=== PATIENT | female | born 2000 | race African-American/Black ===

== ENCOUNTER 2022-06-09 19:58 | Outpatient (CLI) | payer OTHER, MEDICAID ==
[~2022-06-09] VITALS: Ht 157.5 cm; Wt 87.1 kg
[2022-06-09 20:08] VITALS: BP 129/83; PULSE 63; TEMP 98.7
--- NOTE | 2022-06-09 20:08 | NUR ---
2012 AMNITRACE VAGINAL COLLECTION, NEGATIVE. 2014 NO GROSS RUPTURE NOTED WITH SVE. SUPPORT PERSONS AT BEDSIDE.
[2022-06-09] MEDS ORDERED: WOMEN'S DAILY1 TAB PO (20:30)
[2022-06-09] MEDS ORDERED: TYLENOL 325MG325 MG PO (20:32)
--- NOTE | 2022-06-09 20:40 | NUR ---
21YR OLD PT OF DR YANES, , 40.4 PRESENTS WITH LEAKING OF CLEAR FLUID SINCE 06/09/22 0300 POST MUCUS PLUG LOSS, DENIES BLEEDING, REPORTS MOVEMENT. HX OF ASTHMA. 06/08/22 BPP 8/8, TOY 18CM, UA 2.1. INITIAL SVE /-3, VS 129/83, 63 PULSE, 16 RESP, 98.7 TEMP. DENIES PAIN WITH EVERY CONTRACTION, 2-3 VERBAL SCALE USED, GBS NEGATIVE.
--- NOTE | 2022-06-09 21:00 | NUR ---
2126 ASSIST TO SIDE OF BED, STANDING, MICHELLE PAD REMOVED AND AMNITRACE TESTING COMPLETED, NEGATIVE RESULT. PT CONTINUES TO NOT FEEL ALL CONTRACTIONS, REPORTS DISCOMFORT IN BACK SINCE ARRIVAL/INITIAL SVE, DISCUSSED COMFORT MEASURES, VERBLIZES UNDERSTANDING. MICHELLE PAD THAT PT ARRIVED WITH FROM HOME ALSO TESTED AT THIS TIME, NEGATIVE RESULT. CLEARN VAGINAL MUCUS NOTED WITH BOTH AMNITRACE COLLECTIONS.
[2022-06-09 21:30] VITALS: BP 131/71; PULSE 69; TEMP 98.5
--- NOTE | 2022-06-09 22:07 | NUR ---
DISCHARGE TEACHING COMPLETED, VERBALIZES UNDERSTANDING. PT TO RETURN IN EVENT OF RUPTURE OF MEMBRANES, CONTRACTIONS BECOME REGULAR, FREQUENT, PAINFUL, VAGINAL BLEEDING, DECREASED MOVEMENT. EARLY LABOR EDU PROVIDED. PT TO INCREASE ORAL FLUID INTAKE, TYLENOL AND BENADRYL FOR REST/PAIN. RELAXATION TECHNIQUES DISCUSSED, HOTEL VS HOME >2HR AWAY FROM FACILITY. VERBALIZES UNDERSTANDING, DENIES QUESTIONS OR CONCERNS, ENCOURAGED TO CALL FACILTY IF SO.
--- NOTE | 2022-06-09 23:25 | NUR ---
2054 PT CALLS OUT REPORTING VAGINAL LEAKING, AMNITRACE OF BED PAD COLLECTED, INDETERMINANT, RESULT VERIFIED BY SIMONA FRANKLIN. PT POSITIONED FOR POOLING TEST, LT TILT PILLOW SUPPORTING BACK, FRESH MICHELLE PAD APPLIED.
--- NOTE | 2022-06-09 23:38 | NUR ---
2134 ASSIST BACK TO BED, HIGH FOWLERS FOLLOWING SVE.
[2022-06-13] MEDS ORDERED: IBU600 MG PO (07:09)
== END 2022-06-09 22:07 | disposition home or self-care (01) ==
LOC: LDRO 19:58
DX: O42.92 Full-term premature rupture of membranes, unspecified as to length of time between rupture and onset of labor (principal); Z3A.40 40 weeks gestation of pregnancy

== ENCOUNTER 2024-02-28 09:11 | Inpatient (IN) | payer MEDICAID ==
[2024-02-28] VITALS (37 sets, daily range): BP systolic 104–144; BP diastolic 51–79; PULSE 57–89; TEMP 98.2–98.6
[~2024-02-28] VITALS: Ht 157.5 cm; Wt 88.6 kg
[~2024-02-28 09:11] MED LIST: IBU600 MG PO; TYLENOL 325MG325 MG PO; WOMEN'S DAILY1 TAB PO
[2024-02-28] MEDS ORDERED: LR 1,000 ML IV SCH (09:30)
[2024-02-28] MEDS ORDERED: LR & Oxytocin 500 ML IV SCH (09:30)
[2024-02-28 10:05] LABS: BASO % 0.3 % (0.0-2.0); EOS # 0.1 K/mm3 (0.0-0.7); EOS % 1.6 % (0.0-4.0); GRAN # 5.3 K/mm3 (1.4-6.5); GRAN % 69.4 % (42.2-75.2); HEMATOCRIT 40.8 % (37.0-47.0); HEMOGLOBIN 13.9 g/dl (12.5-16.0); LYMPH # 1.7 K/mm3 (1.2-3.4); LYMPH % 21.7 % (20.0-51.0); MEAN CELL VOLUME 85 fl (80.0-100.0); MEAN CORPUSCULAR HEMOGLOBIN 29 pg (27-31); MEAN CORPUSCULAR HGB CONC 34 g/dl (33.0-37.0); MEAN PLATELET VOLUME 10.6 fl (7.4-10.4); MONO # 0.5 K/mm3 (0.1-0.6); MONO % 6.3 % (1.7-9.3); PLATELET COUNT 174 K/mm3 (130-400); RED BLOOD COUNT 4.78 M/mm3 (4.10-5.30); REDCELL DISTRIBUTION WIDTH-CV 13.8 % (11.5-14.5)
[2024-02-28] MEDS ORDERED: ROPivacaine PF 0.2% 200 ML IV ONE (12:58)
--- NOTE | 2024-02-28 13:15 | NUR ---
1238- WILLIAM CALLED FOR PT REQUESTED EPIDURAL. 1305- WILLIAM AT BEDSIDE DISCUSSING EPIDURAL WITH PT. 1315- TEST DOSE. PT TOLERATED WELL. DIFFICULTY TRACING CX AT THIS TIME. 1323- PT REPOSITIONED TO WEDGE LEFT. FHT DECEL TO 100'S WITH CX, PT REPOSITIONED TO WEDGE RIGHT.
[2024-02-28] MEDS ORDERED: diphenhydrAMINE 50 MG/ML 1 ML VIAL IV PRN (13:30)
[2024-02-28] MEDS ORDERED: Ondansetron 4 MG/2 ML VIAL IV PRN (13:30)
[2024-02-28] MEDS ORDERED: diphenhydrAMINE 25 MG CAP PO PRN (13:30)
[2024-02-28] MEDS ORDERED: Naloxone 0.4 MG/ML VIAL IV PRN ×2 (13:30→17:30)
[2024-02-28] MEDS ORDERED: ePHEDrine 50 MG/10 ML VIAL IV PRN (13:30)
--- NOTE | 2024-02-28 17:07 | NUR ---
1626- SVE PT COMPLETE 0 STATION. 1628- CALLED DR YANES, LEFT MESSAGE WITH THE PERSON WHO ANSWERED THAT WE ARE READY FOR DR YANES. 1631- PITOCIN TURNED OFF. 1642- DR YANES AT BEDSIDE. PT PREPARES TO START PUSHING. 1644- PT BEGINS PUSHING. 1707-SPONTANEOUS VAGINAL DELIVERY OF A VIABLE BABY GIRL. HAD NUCHAL X2. DR YANES STOPPED MATERNAL PUSHING EFFORTS AFTER HEAD DELIVERED TO CLAMP AND CUT THE NUCHAL. ONCE CUT NUCHAL WAS REMOVED AND SHOULDERS DELIVERED. WAS PLACED ON MOTHERS CHEST. CARE OF WAS TAKEN OVER BY NURSERY NURSE. BABY WAS DRIED AND STIMULATED. 1710- SPONTANEOUS DELIVERY OF THE PLACENTA. DR YANES REPAIRED A SECOND DEGREE PERINEAL LACERATION. FATHER OF BABY CUT THE CORD TO SHORTEN THE CORD. QBL 300. PT WAS REPOSITIONED. BLEEDING MINIMAL.
[2024-02-28] MEDS ORDERED: oxyCODONE 5 MG TAB PO PRN (17:30)
[2024-02-28] MEDS ORDERED: Loratadine 10 MG TAB PO PRN (17:30)
[2024-02-28] MEDS ORDERED: Magnes Hydrox (MOM) 80 MG/ML 30 ML CUP PO PRN (17:30)
[2024-02-28] MEDS ORDERED: Phenylephrine/Mineral Oil/Petrolatum 57 GM TUBE RC PRN (17:30)
[2024-02-28] MEDS ORDERED: Ibuprofen 600 MG TAB PO SCH (17:30)
[2024-02-28] MEDS ORDERED: Acetaminophen 500 MG TAB PO SCH (17:30)
[2024-02-28] MEDS ORDERED: Witch Hazel 50% Pads Bulk TUB TP PRN (17:30)
[2024-02-28] MEDS ORDERED: Measles/Mumps/Rubella Virus Vaccine Live w Diluent 0.5 ML VIAL SQ SCH (17:30)
[2024-02-28] MEDS ORDERED: Mag/Al Hydrox/Simeth Susp 30 ML CUP PO PRN (17:30)
--- NOTE | 2024-02-28 19:25 | NUR ---
191- PATIENT ABLE TO LIFT BILATERAL LOWER EXTREMITIES. PATIENT SITTING ON EDGE OF BED. DENIES FEELING LIGHT HEADED. EPIDURAL CATHETER REMOVED WITH TIP INTACT. 1914- PATIENT TRANSFERRED TO RESTROOM FOLLOWING DELIVERY VIA [facility]. PERICARE PROVIDED. PATIENT UNABLE TO VOID AT THIS TIME. CLEAN GOWN, UNDERWEAR AND MESH UNDERWEAR ON. 1924- PATIENT TRANSFERRED TO ROOM VIA [facility]. SPOUSE AND PATIENT ORIENTED TO ROOM. PLAN OF CARE EXPLAINED. QUESTIONS INVITED AND ANSWERED.
[2024-02-28] MEDS ORDERED: traZODone 50 MG TAB PO PRN (21:00)
[2024-02-29 01:33] VITALS: BP 113/69; PULSE 60
[2024-02-29] MEDS ORDERED: Sennosides/Docusate 8.6-50 MG TAB PO SCH (08:00)
[2024-02-29 09:18] VITALS: BP 128/64; PULSE 67; TEMP 98.2
--- NOTE | 2024-02-29 09:57 | NUR ---
1000 REPORT GIVEN TO VIELKA FRANKLIN TO ASSUME CARE
--- NOTE | 2024-02-29 10:26 | NUR ---
Initial visit attempt; Family resting. Gearcase Assembler left card offering congratulations for the of their daughter and information regarding the availability of Spiritual Care at our hospital.
--- NOTE | 2024-02-29 10:30 | NUR ---
REPORT FROM RIGOBERTO CHASE. THIS RN ASSUMES CARE AT THIS TIME.
--- NOTE | 2024-02-29 20:05 | NUR ---
1949- DISCHARGE INSTRUCTIONS REVIEWED WITH PT AND SPOUSE, UNDERSTANDING VERBALIZED. 2004- PT OFF THE UNIT AMBULATORY WITH SPOUSE AND IN INFANT CARRIER, ESCORTED OFF UNIT BY John NAVA, NET FINISHER.
== END 2024-02-29 20:05 | disposition home or self-care (01) | DRG 807 ==
LOC: LDR 09:11 → OB 14:45
PROVIDERS: ADMIT Obstetrics & Gynecology
PROC: 10E0XZZ Delivery of Products of Conception, External Approach (ICD-10-PCS; principal; 2024-02-28)
PROC: 0KQM0ZZ Repair Perineum Muscle, Open Approach (ICD-10-PCS; 2024-02-28)
PROC: 3E033VJ Introduction of Other Hormone into Peripheral Vein, Percutaneous Approach (ICD-10-PCS; 2024-02-28)
PROC: 10907ZC Drainage of Amniotic Fluid, Therapeutic from Products of Conception, Via Natural or Artificial Opening (ICD-10-PCS; 2024-02-28)
DX: O48.0 Post-term pregnancy (principal); Z37.0 Single live birth; Z3A.41 41 weeks gestation of pregnancy; J45.909 Unspecified asthma, uncomplicated; O99.52 Diseases of the respiratory system complicating childbirth; L40.9 Psoriasis, unspecified; O99.72 Diseases of the skin and subcutaneous tissue complicating childbirth; O70.1 Second degree perineal laceration during delivery; O69.81X0 Labor and delivery complicated by cord around neck, without compression, not applicable or unspecified; O76 Abnormality in fetal heart rate and rhythm complicating labor and delivery
CPT/HCPCS: J2590; J2795; J7120